=== PATIENT | female | born 1995 | race Caucasian/White ===

== ENCOUNTER 2016-10-09 11:44 | Emergency (ER) | payer OTHER ==
[~2016-10-09] VITALS: Ht 160 cm; Wt 97.5 kg
[2016-10-09 11:48] VITALS: BP 136/83
--- NOTE | 2016-10-09 11:53 | ED SKIN/ALLERGY COMPLAINT ---
History of Present Illness General Chief Complaint: Allergy Symptoms Stated Complaint: ALLERGIC REACTION? PER PT SWOLLEN LIP,THROAT TIGHT Source: patient Exam Limitations: no limitations Vital Signs & Intake/Output Vital Signs & Intake/Output Vital Signs Date Time Temp Pulse Resp B/P B/P Pulse O2 O2 Flow FiO2 Mean Ox Delivery Rate 10/09 1148 96.4 123 18 136/83 98 Room Air Allergies Coded Allergies: latex (Mild, RASH 10/09/16) Reconcile Medications Prednisolone 15 MG/5 ML SOLUTION 5 ML PO BID ALLERGIC REACTION TAKE FOR FOUR Triage Note: 21 YO FEMALE TO ER C/O SWOLLEN UPPER LIP AND RASH X2 DAYS. UNSURE OF WHAT THE ALLERGIC REACTION IS TO. STATES HER MOM WASHED THE CARISSA WITH BLEACH A COUPLE DAYS AGO AND STATES ?RXN TO THE BLEACH. C/O DRY THROAT, NO RESP DISTRES NOTED. Triage Nurses Notes Reviewed? yes Onset: Gradual Duration: constant Timing: recent history Severity: moderate Severity Numbers: 4 : No Patient currently breastfeeds: No HPI: Patient is a 21-year-old female who presents emergency room stating that on Friday 3 days ago patient had a gradual onset of generalized body pruritus and concerns of allergic reaction in which she discussed with mom of her concerns where mom states that she began using bleach prior to onset of symptoms to wash CLOTHES. Patient states that the suspecting hives have improved however today patient has been complaining of persistent upper lip swelling paresthesia and throat itching and swelling complaints. Patient is able to tolerate by mouth Patient took Benadryl prior to arrival took 50 mg. She denies any fever chills skin rash, TONGUE SWELLING, difficulty breathing or swallowing. (FLAKO POST) Past History Travel History Traveled to [place] past 21 day No Medical History Any Pertinent Medical History? none Neurological: NONE EENT: NONE Cardiovascular: NONE Respiratory: NONE Gastrointestinal: NONE Hepatic: NONE Renal: NONE Musculoskeletal: NONE Psychiatric: NONE Endocrine: NONE Blood Disorders: NONE Cancer(s): NONE Surgical History Surgical History: non-contributory Psychosocial History What is your primary language Ecuadorean Tobacco Use: Never used Family History Hx Contributory? No (FLAKO POST) Review of Systems Review of Systems Constitutional: Reports: no symptoms. EENTM: Reports: see HPI. Respiratory: Reports: no symptoms. Cardiovascular: Reports: no symptoms. GI: Reports: no symptoms. Genitourinary: Reports: no symptoms. Musculoskeletal: Reports: no symptoms. Skin: Reports: no symptoms. Neurological/Psychological: Reports: see HPI, paresthesia. Hematologic/Endocrine: Reports: see HPI. Immunologic/Allergic: Reports: no symptoms. All Other Systems: Reviewed and Negative (FLAKO POST) Physical Exam Physical Exam General Appearance: no apparent distress, alert Comments: Well-developed well-nourished person in no acute distress HEENT: Normal EENT exam, extraocular motion intact, no nystagmus. Pupils equally round and reactive to light and accommodation. Nose is atraumatic. External auditory canal and Tympanic membranes clear. Pharynx normal. No swelling or edema. Mild right lateral upper lip swelling no pharyngeal swelling no stridor Neck: Supple, no lymphadenopathy, normal range of motion without pain or tenderness No stridor Back: Nontender, no CVA tenderness. Cardiovascular: Regular rate and rhythms no murmurs rubs or gallops, normal JVP Respiratory: Chest nontender. No respiratory distress.breath sounds clear to auscultation bilaterally Abdomen: Soft, nontender nondistended, no appreciable organomegaly. Normal bowel sounds. No ascites Extremity: No edema, no calf tenderness to palpation, normal and equal pulses. Neuro: Alert oriented x3, motor sensory normal, Skin: No appreciable rash on exposed skin however skin is noted to be mildly erythematous generalized Psych: Mood and affect is normal, memory and judgment is normal. (FLAKO POST) Progress Differential Diagnosis: abscess/cellulitis, allergic reaction, anaphylaxis, angioedema, contact dermatitis, meningitis/sepsis, piyriasis rosea, scarlet fever, shingles, syphilis/gonococcemia, urticaria Plan of Care: Current Medications Sig/Tony Start time Last Medication Dose Stop Time Status Admin Famotidine 20 MG ONCE ONE 10/10 1199 CAN (Pepcid) 10/09 1201 Prednisone 60 MG ONCE ONE 10/09 1200 CAN 10/09 120 No concerns at this time of anaphylaxis or severe angioedema. No respiratory distress clear lungs to auscultation no airway compromise oxygen saturation 100% . Upon discharge patient looks well no apparent distress and will comply with discharge instructions and had no questions (FLAKO POST) Departure Departure Disposition: HOME OR SELF CARE Condition: Stable Clinical Impression Primary Impression: Allergic reaction Secondary Impressions: Hives Additional Instructions: As discussed you have received prednisone in the emergency room today, begin the prescription of prednisone tomorrow for your symptoms. Continue over-the- counter Benadryl as directed and begin [id number] Pepcid as directed for your symptoms. If no better in 2 days follow-up with primary care doctor. If symptoms worsen return to emergency room Departure Forms: Customer Survey General Discharge Information Prescriptions: Current Visit Scripts Prednisolone 5 ML PO BID #50 ML TAKE FOR FOUR (FLAKO POST) PA/CUSTODIAL FOREMAN Co-Sign Statement Statement: ED Attending supervision documentation- x I saw and evaluated the patient. I have also reviewed all the pertinent lab results and diagnostic results. I agree with the findings and the plan of care as documented in the PA's/CUSTODIAL FOREMAN's documentation. [] I have reviewed the ED Record and agree with the PA's/CUSTODIAL FOREMAN's documentation. [] Additions or exceptions (if any) to the PAs/CUSTODIAL FOREMAN's note and plan are summarized below: [] (TINA VELASQUEZ,LENI)
[2016-10-09] MEDS ORDERED: PREDNISOLO15 MG/5 M4 PO (12:02)
== END 2016-10-09 12:17 ==
LOC: ERH 11:44
DX: T78.40XA Allergy, unspecified, initial encounter (principal); L50.9 Urticaria, unspecified
CPT/HCPCS: J2650